=== PATIENT | female | born 1950 | race Caucasian/White ===

== ENCOUNTER 2017-09-22 03:26 | Observation (INO) ==
[2017-09-22 06:19] LABS: Basophils % 0.2 % (0.0-0.8); Eosinophils % 0.2 % (0.00-10.9); Hemoglobin 11.7 GM/DL (12.0-16.0); Immature Granulocytes % 1.2 %; Immature Granulocytes Absolute 0.15 #; Lymphocytes # 1.3 10*3/uL (1.4-4.0); Lymphocytes % 10.3 % (21.3-54.2); Mean Corpuscular HGB Conc 33.4 GM/DL (32-36); Mean Corpuscular Hemoglobin 28 PG (27-34); Mean Platelet Volume 10.3 FL (9.6-12.0); Monocytes # 0.7 10*3/uL (0.11-0.8); Monocytes % 5.7 % (1.7-12.7); Neutrophils # 10.7 10*3/uL (1.4-7.4); Neutrophils % 82.4 % (38.7-73.9); Platelet Count 259 T/CUMM (130-400); Red Blood Count 4.12 MC/CUMM (3.8-5.5); Red Cell Distribution Width 13.3 % (9.3-17.3); White Blood Count 12.9 T/CUMM (4-12)
[2017-09-22] MEDS ORDERED: ONDANSETRON 4 MG/2 ML VIAL IV STA (06:52)
[2017-09-22] MEDS ORDERED: SODIUM CHLORIDE 0.9% 1,000 ML IV STA (06:52)
[2017-09-22] MEDS ORDERED: LOPERAMIDE 2 MG CAPSULE PO STA (06:52)
[2017-09-22 07:00] LABS: Calcium 8.3 MG/DL (8.5-10.1); Osmolality,Calculated 282.8 MOS/KG (273-304); Potassium 4.5 MMOL/L (3.5-5.1)
[2017-09-22] MEDS ORDERED: ACETAMINOPHEN 325 MG TABLET PO PRN (09:23)
[2017-09-22] MEDS ORDERED: DEXTROSE 50% 25 GM/50 ML VIAL IV PRN (09:28)
[2017-09-22] MEDS ORDERED: GLUCAGON 1 MG VIAL IM PRN (09:28)
[2017-09-22] MEDS: SODIUM CHLORIDE 0.9% 1,000 ML IV SCH ×2 (10:30→19:53)
[2017-09-22] MEDS: INSULIN REGULAR 100 UNIT/ML SUBCUT SCH ×3 (12:24→20:57)
[2017-09-22 12:40] LABS: Apearance,Urine CLEAR (Clear); Bilirubin,Urine Negative (Negative); Blood, Urine Negative (Negative); Glucose,Urine (UA) >=500 mg/dL (Negative); Ketones,Urine 80 mg/dL (Negative); Nitrite,Urine Negative (Negative); Protein,Urine Negative; RBC,Urine 1 /HPF (0-4); Urine Color Straw (Yellow); Urine Specific Gravity 1.018 (1.001-1.035); Urine Urobilinogen < 2.0 EU/DL (0.2-1.0); WBC,Urine 3 /HPF (0-6)
[2017-09-22] MEDS: ONDANSETRON 4 MG/2 ML VIAL IV PRN ×2 (14:28→19:52)
[2017-09-22] MEDS: ALPRAZolam 0.5 MG TABLET PO SCH (20:56)
[2017-09-22] MEDS: GABAPENTIN 300 MG CAPSULE PO SCH (20:56)
[2017-09-22] MEDS: NABUMETONE 500 MG TABLET PO SCH (20:57)
[2017-09-22] MEDS ORDERED: INSULIN GLARGINE 100 UNIT/ML SUBCUT SCH (21:00)
[2017-09-23] MEDS: SODIUM CHLORIDE 0.9% 1,000 ML IV SCH (04:40)
[2017-09-23 06:39] LABS: Basophils % 0.3 % (0.0-0.8); Eosinophils # 0.2 10*3/uL (0.0-0.87); Eosinophils % 3.2 % (0.00-10.9); Hematocrit 31.5 VOL% (35.7-47.0); Hemoglobin 10.4 GM/DL (12.0-16.0); Immature Granulocytes % 1.7 %; Immature Granulocytes Absolute 0.11 #; Lymphocytes # 1.8 10*3/uL (1.4-4.0); Lymphocytes % 27.9 % (21.3-54.2); Mean Corpuscular Hemoglobin 28 PG (27-34); Mean Corpuscular Volume 86.1 FL (87-102); Monocytes # 0.6 10*3/uL (0.11-0.8); Monocytes % 8.8 % (1.7-12.7); Neutrophils # 3.8 10*3/uL (1.4-7.4); Neutrophils % 58.1 % (38.7-73.9); Platelet Count 229 T/CUMM (130-400); Red Blood Count 3.66 MC/CUMM (3.8-5.5); Red Cell Distribution Width 13.8 % (9.3-17.3); White Blood Count 6.6 T/CUMM (4-12)
[2017-09-23 07:11] LABS: Calcium 7.7 MG/DL (8.5-10.1); Osmolality,Calculated 294.1 MOS/KG (273-304); Potassium 4.1 MMOL/L (3.5-5.1); Thyroid Stimulating Hormone 1.45 uIU/ml (0.358-3.74)
[2017-09-23] MEDS ORDERED: PANTOPRAZOLE 40 MG TABLET PO SCH (09:00)
[2017-09-23] MEDS ORDERED: CITALOPRAM 20 MG TABLET PO SCH (09:00)
[2017-09-23] MEDS ORDERED: OXYBUTYNIN 5 MG TABLET PO SCH (09:00)
[2017-09-23] MEDS ORDERED: LISINOPRIL 5 MG TABLET PO SCH (09:00)
[2017-09-23] MEDS ORDERED: NON-FORMULARY MEDICATION (Esomeprazole Magnesium [Nexium] 20 MG) PO SCH (09:00)
[2017-09-23] MEDS ORDERED: PRAVASTATIN 40 MG TABLET PO SCH (09:00)
[2017-09-23] MEDS: NABUMETONE 500 MG TABLET PO SCH (09:12)
[2017-09-23] MEDS: ALPRAZolam 0.5 MG TABLET PO SCH (09:12)
[2017-09-23] MEDS: GABAPENTIN 300 MG CAPSULE PO SCH (09:12)
[2017-09-23] MEDS: INSULIN REGULAR 100 UNIT/ML SUBCUT SCH ×2 (09:17→14:46)
[2017-09-23 16:26] VITALS: BP 126/71
== END 2017-09-23 16:10 | disposition home or self-care (01) ==
LOC: N.EDINP 03:26 → N.ED 03:26 → N.5E 08:33
PROVIDERS: ADMIT Internal Medicine; ATTEND Internal Medicine